=== PATIENT | female | born 1955 | race Caucasian/White ===

== ENCOUNTER 2016-05-01 06:35 | Day surgery (SDC) | payer BC ==
--- NOTE | ~2016-05-01 | EGD ---
EGD REPORT [facility] [address] [address] NAME: RHODA PRESTON : 51 STATUS : REG [facility]#: [id number] AGE: 61 ADM/REG DATE : 05/01/16 MR#: [id number] REPORT SERV DATE: 05/01/16 DICTATED BY: MOHAN CARDOZA DATE: 05/01/16 REPORT STATUS : Draft TRANSCRIBED BY: [employer] [facility] DATE: 05/01/16 Endoscopy Center Patient Name: Rhoda Preston Date of : 1955 Attending MD: MOHAN CARDOZA MD Procedure Date No Time: 05/01/2016 Procedure: Upper GI endoscopy Indications: Dysphagia, Esophageal reflux, Reflux esophagitis Referring MD: MARÍA DOCKERY MD Medicines: Monitored Anesthesia Care Complications: No immediate complications. Procedure: Pre-Anesthesia Assessment: - ASA Grade Assessment: II - A patient with mild systemic disease. After obtaining informed consent, the endoscope was passed under direct vision. Throughout the procedure, the patient's blood pressure, pulse, and oxygen saturations were monitored continuously. The GIF [id number] was introduced through the mouth, and advanced to the second part of duodenum. The upper GI endoscopy was accomplished without difficulty. The patient tolerated the procedure well. Findings: A mild Schatzki ring (acquired) was found in the lower third of the esophagus. A guidewire was placed and the scope was withdrawn. Dilation was performed with a Savary dilator with no resistance at 48 Fr. Estimated blood loss: none. The examined esophagus was normal. A small hiatus hernia was present. Striped mildly erythematous mucosa without bleeding was found in the gastric antrum. Biopsies were taken with a cold forceps for histology. The duodenal bulb and 2nd part of the duodenum were normal. The cardia and gastric fundus were normal on retroflexion. Impression: - Mild Schatzki ring. Dilated. - Normal esophagus. - Hiatus hernia. - Erythematous mucosa in the antrum. Biopsied. - Normal duodenal bulb and 2nd part of the duodenum. Recommendation: - Patient has a contact number available for emergencies. The signs and symptoms of potential delayed complications were discussed with the patient. Return to normal activities tomorrow. Written discharge EGD REPORT [address] [address] NAME: RHODA PRESTON : [birth year] STATUS : REG [facility] PAT#: [id number] AGE: 61 ADM/REG DATE : 05/01/16 MR#: [id number] REPORT SERV DATE: 05/01/16 DICTATED BY: MOHAN CARDOZA DATE: 05/01/16 REPORT STATUS : Draft TRANSCRIBED BY: [employer] DATE: 05/01/16 instructions were provided to the patient. - Regular diet. - Continue present medications. - Follow an antireflux regimen. - Continue present medications. - Return to GI clinic in 6 months. Procedure Code(s): --- Professional --- 32571, Esophagogastroduodenoscopy, flexible, transoral; with insertion of guide wire followed by passage of dilator(s) through esophagus over guide wire 73957, Esophagogastroduodenoscopy, flexible, transoral; with biopsy, single or multiple Diagnosis Code(s): --- Professional --- K22.2, Esophageal obstruction K44.9, Diaphragmatic hernia without obstruction or gangrene K31.9, Disease of stomach and duodenum, unspecified R13.10, Dysphagia, unspecified K21.0, Gastro-esophageal reflux disease with esophagitis CPT copyright 2013 [employer]. All rights reserved. The codes documented in this report are preliminary and upon plane runner review may be revised to meet current compliance requirements. MOHAN CARDOZA MD 05/01/2016 8:16 AM This report has been signed electronically. Number of Addenda: 0 Note Initiated On: 05/01/2016 7:54 AM Scope Withdrawal Time 0 hours 0 minutes 0 seconds [address] [place] [address]
[~2016-05-01 06:35] MED LIST: HYZAAR 100/25 T1 TAB PO; LEVOTHYROXIN50 MCG PO; LOP25; MINOCIN100 PO; MOBIC15 MG PO; NORV5 PO; PRILOSEC40 MG PO; TOPXL100 PO
== END 2016-05-01 23:59 | disposition home or self-care (01) ==
LOC: DMU 06:35
PROVIDERS: Internal Medicine Gastroenterology
PROC: 0D738ZZ Dilation of Lower Esophagus, Via Natural or Artificial Opening Endoscopic (ICD-10-PCS; principal; 2016-05-01 08:00)
PROC: 0DB68ZX Excision of Stomach, Via Natural or Artificial Opening Endoscopic, Diagnostic (ICD-10-PCS; 2016-05-01 08:00)
DX: K29.50 Unspecified chronic gastritis without bleeding (principal); K22.2 Esophageal obstruction; K44.9 Diaphragmatic hernia without obstruction or gangrene; K21.0 Gastro-esophageal reflux disease with esophagitis; E03.9 Hypothyroidism, unspecified; M10.9 Gout, unspecified; E66.9 Obesity, unspecified; I10 Essential (primary) hypertension; Z79.899 Other long term (current) drug therapy; Z98.890 Other specified postprocedural states; Z96.642 Presence of left artificial hip joint; Z98.51 Tubal ligation status
CPT/HCPCS: 88305